=== PATIENT | male | born 1995 | race African-American/Black ===

== ENCOUNTER 2016-07-06 23:25 | Emergency (ER) | payer SELFPAY ==
[~2016-07-06] VITALS: Ht 190.5 cm; Wt 76.0 kg
[2016-07-06 23:27] VITALS: BP 153/68; PULSE 67; RESP 18; TEMP 98.5; O2SAT 100
--- NOTE | 2016-07-07 00:57 | PD ---
HPI Chief Complaint: Injury Time Seen by Provider: 00:54 Travel History International Travel<30 days: No Contact w/Intl Traveler<30days: No Traveled to known affect area: No History of Present Illness HPI Patient has a complaining of right ankle pain ongoing for approximately one week ago while playing basketball.He states someone stepped on the medial aspect of his right ankle causing it to invert. Patient had a throbbing pain since without radiation. Patient has been doing Rice therapy for symptomatic relief. Pain is worse with walking. Patient also has concerns over penile discharge ongoing for 4 days. Patient denies any dysuria, testicular pain, abdominal pain, fevers, or knowing if his last partner was symptomatic. [facility] Past Medical History Medical History: Denies Significant Hx Diminished Hearing: No Immunizations Current: Yes Tetanus Vaccination: < 5 Years Influenza Vaccination: No Past Surgical History Surgical History: No Previous Surgery Social History Alcohol Use: No Tobacco Use: No Substance Use: Yes (occ) Allergies-Medications (Allergen,Severity, Reaction): Coded Allergies: No Known Allergies (Unverified , 07/07/16) Reported Meds & Prescriptions Reported Meds & Active Scripts Active No Active Prescriptions or Reported Medications Review of Systems Except as stated in HPI: all other systems reviewed are Neg Physical Exam Narrative GENERAL: Well-developed, well nourished, in no acute distress, and non-ill appearing. SKIN: Warm and dry. HEAD: Atraumatic. Normocephalic. EYES: Pupils equal and round. EOMI. No scleral icterus. No injection or drainage. ENT: No nasal bleeding or discharge. Mucous membranes pink and moist. NECK: Trachea midline. Supple. No nuclear rigidity. CARDIOVASCULAR: Dorsal pulses 2+ intact bilaterally. Capillary refill less than 2 seconds. RESPIRATORY: No accessory muscle use. No respiratory distress. GASTROINTESTINAL: Abdomen soft, non-tender, nondistended. Hepatic and splenic margins not palpable. No pulsatile mass. MUSCULOSKELETAL: No obvious deformities. No clubbing. No cyanosis. No edema. Full range of motion.Ankle: Neagative anterior draw and Ward test. Negative Shweta's sign. No laxity noted with passive inversion and eversion of BL ankles. Negative squeeze test. Pulses equal BL distal to injury. Capillary refill less than 2 seconds distal to injury and equal BL. Sensation equal BL 1st web space. FROM of toes distal to injury and equal BL. NV intact distal to injury and equal BL. Dorsal pulses equal BL. Patient reports tenderness to palpation medial aspect of right ankle there is minimal soft tissue swelling noted. NEUROLOGICAL: Awake and alert. No obvious cranial nerve deficits. Motor grossly within normal limits. Normal speech. PSYCHIATRIC: Appropriate mood and affect; insight and judgment normal. Data Data Last Documented VS Vital Signs Date Time Temp Pulse Resp B/P Pulse Ox O2 Delivery O2 Flow Rate FiO2 07/07/16 00:50 14 07/06/16 23:27 98.5 67 153/68 100 Orders Ankle, Complete ([id number]) (07/07/16 ) Gc And Chlamydia Pcr (07/07/16 00:53) Azithromycin Powd Pack (Zithromax Powd P (07/07/16 01:00) Metronidazole (Flagyl) (07/07/16 01:00) Sodium Chloride 0.9% Flush (Ns Flush) (07/07/16 01:00) Ceftriaxone Inj (Rocephin Inj) (07/07/16 01:00) Lidocaine Pf 1% Inj (Xylocaine-Mpf 1% In (07/07/16 01:00) Splint Or Brace Apply/Monitor (07/07/16 01:27) MDM Medical Decision Making Medical Screen Exam Complete: Yes Emergency Medical Condition: Yes Differential Diagnosis Fracture, sprain, contusion, gonorrhea, chlamydia, other Narrative Course There is no clinical evidence for fracture. There is no clinical evidence to suspect bony injury by exam. Radiographic examination revealed no fracture seen at this time. No obvious ligamental injury or internal derangement is noted at this time. The distal extremity appears neurovascularly intact, without evidence of neurovascular injury nor compartment syndrome. Tendon exam also was intact. The effected limb was splinted. The patient was discharged on pain medication along with sprain and splint care instructions and given warnings for vascular compromise. The patient is to follow up with Orthopedics. The patient agrees with plan. Patient in no obvious distress upon re-evaluation. All pertinent Radiology result(s) discussed with patient. Patient was asked if they wanted to speak to my attending, which the patient did not wish to do at this time. Any questions/ concerns in reference to patient diagnosis/condition discussed and clarified prior to patient's discharge. Reinforced sheer importance of close follow up with patient's primary physician or primary care clinic. Instructed patient to return to ED immediately, if symptoms return/worsen. Pt showed understanding of above instructions. Further instructions and recommendations were detailed in discharge paperwork. Pt ambulated without difficulty out of ED at discharge. Diagnosis Primary Impression: Right ankle sprain Qualified Code: S93.401A - Sprain of right ankle, unspecified ligament, initial encounter Additional Impression: Possible exposure to STD Referrals: [facility] Dept. Patient Instructions: Ankle Sprain (ED), Ankle Sprain Exercises (GEN), General Instructions, Sexually Transmitted Diseases (ED), Splint Care (ED) Additional Instructions: Follow-up with primary care doctor and/or orthopedics in 2-3 days for evaluation of your ankle. Use [id number] Tylenol and/or ibuprofen as needed for pain. Follow instructions on the packaging. Apply ice to affected area 20 minutes per hour as needed for pain. Use Imer wrap as needed for comfort. Follow-up with your primary care physician and/or health Department for additional STD testing. Notify all sexual partners have them tested and treated. Do not have intercourse until all sexual partners tested and treated. Practice safe sex to prevent further STDs and/or unwanted pregnancies. If you would like a copy of your gonorrhea and chlamydia results bring a photo ID to medical records in 24-48 hours to get a copy. Return to the emergency department if symptoms get worse. Scripts No Active Prescriptions or Reported Meds Disposition: 01 DISCHARGE HOME Condition: Stable Jose Israel Jul 07, 2016 00:57
[2016-07-07] MEDS ORDERED: LIDOCAINE HCL 1% PF 30 ML VIAL XX ONE (01:00)
[2016-07-07] MEDS ORDERED: SODIUM CHLORIDE 0.9% FLUSH 5 ML FLUSH IVF PRN (01:00)
[2016-07-07] MEDS ORDERED: AZITHROMYCIN PWD FOR SUSP 1 GM PACKET PO ONE (01:00)
[2016-07-07] MEDS ORDERED: metroNIDAZOLE 500 MG TAB PO ONE (01:00)
--- NOTE | 2016-07-07 01:04 | RADRPT ---
EXAM DATE/TIME: 07/07/2016 00:43 [place] COMPARISON: No previous studies available for comparison. INDICATIONS : Right ankle pain and swelling post twisting action playing basketball. MEDICAL HISTORY : None. SURGICAL HISTORY : None. ENCOUNTER: Initial ACUITY: 1 day PAIN SCORE: 6/10 LOCATION: Right ankle FINDINGS: Three view exam was performed of the right ankle. The bony structures are in normal alignment. No e vidence of fracture or dislocation. There is soft tissue swelling seen laterally. The ankle mortise is intact. No radiopaque foreign bodies are seen. Bony mineralization is normal. CONCLUSION: Lateral soft tissue swelling. Bandar Mejia MD on July 07, 2016 at 1:02 Board Certified Radiologist. This report was verified electronically.
[2016-07-07 03:01] LABS: CHLAMYDIA PCR DETECTED (NOT DETECT); NEISSERIA PCR NOT DETECTED (NOT DETECT)
== END 2016-07-07 01:53 | disposition home or self-care (01) ==
LOC: NEPB 23:25
DX: S93.401A Sprain of unspecified ligament of right ankle, initial encounter (principal); Y93.67 Activity, basketball
CPT/HCPCS: 73610; 87491; 87591; 96372; 99283; J0696

== ENCOUNTER 2016-11-11 11:55 | Emergency (ER) | payer MEDICAID, OTHER ==
[~2016-11-11] VITALS: Ht 190.5 cm; Wt 80.0 kg
[2016-11-11 11:56] VITALS: BP 140/81; PULSE 67; RESP 15; TEMP 98.5; O2SAT 99
--- NOTE | 2016-11-11 12:01 | PD ---
Physical Exam Date Seen by Provider: Nov 11, 2016 Time Seen by Provider: 11:57 Data Data Last Documented VS Vital Signs Date Time Temp Pulse Resp B/P Pulse Ox O2 Delivery O2 Flow Rate FiO2 11/11/16 11:56 98.5 67 15 140/81 99 MDM Supervised Visit with BOAZ: No Narrative Course 21 YO M with complaint of sharp suprapubic abdominal pain. ++ dysuria and penile discharge. ++unprotected sex with female partner --N/V, F/C. Vitals reviewed. Patient seen in triage, awaiting bed placement. Scripts No Active Prescriptions or Reported Meds Rekha Mejía Nov 11, 2016 12:01
--- NOTE | 2016-11-11 12:25 | PD ---
HPI Chief Complaint: Complaint Time Seen by Provider: 12:20 Travel History International Travel<30 days: No Contact w/Intl Traveler<30days: No Traveled to known affect area: No History of Present Illness HPI 21-year-old Afro-[place] male presents to emergency Department with dysuria and penile discharge and lower abdominal cramping over the past 2 days. Patient denies fever, chills, flank pain, or testicular pain. He denies any lesions on the penis. Patient had uptake consistent with an unknown partner approximately one week ago. He has no nausea, vomiting, or other significant symptoms. Pain is 2/10 with urination. He has no known drug allergies. [facility] Past Medical History Diminished Hearing: No Immunizations Current: Yes ?: Not Social History Alcohol Use: Yes Tobacco Use: Yes Substance Use: No Allergies-Medications (Allergen,Severity, Reaction): Coded Allergies: No Known Allergies (Unverified , 11/11/16) Reported Meds & Prescriptions Reported Meds & Active Scripts Active No Active Prescriptions or Reported Medications Review of Systems Except as stated in HPI: all other systems reviewed are Neg General / Constitutional: No: Fever Eyes: No: Visual changes HENT: No: Headaches Cardiovascular: No: Chest Pain or Discomfort Respiratory: No: Shortness of Breath Gastrointestinal: No: Abdominal Pain Genitourinary: Positive: Dysuria, Pelvic Pain, Discharge Musculoskeletal: No: Pain Skin: No Rash Neurologic: No: Weakness Psychiatric: No: Depression Endocrine: No: Polydipsia Hematologic/Lymphatic: No: Easy Bruising Physical Exam Narrative GENERAL: Patient appears in no acute distress. SKIN: Warm and dry. Normal color. Normal turgor. No rash. HEAD: Atraumatic. Normocephalic. EYES: Pupils equal and round. No scleral icterus. No injection or drainage. ENT: No nasal bleeding or discharge. Mucous membranes pink and moist. Pharynx is clear. Airway is patent. NECK: Trachea midline. Supple nontender. CARDIOVASCULAR: Regular rate and rhythm. RESPIRATORY: No accessory muscle use. Clear to auscultation. Breath sounds equal bilaterally. GASTROINTESTINAL: Abdomen soft, mild suprapubic tenderness with palpation, nondistended. Hepatic and splenic margins not palpable. No CVA tenderness. NEUROLOGICAL: Awake and alert. No obvious cranial nerve deficits. Motor grossly within normal limits. Five out of 5 muscle strength in the arms and legs. Normal speech. PSYCHIATRIC: Appropriate mood and affect; insight and judgment normal. Data Data Last Documented VS Vital Signs Date Time Temp Pulse Resp B/P Pulse Ox O2 Delivery O2 Flow Rate FiO2 11/11/16 11:56 98.5 67 15 140/81 99 Orders Urinalysis - C+S If Indicated (11/11/16 12:19) Gc And Chlamydia Pcr (11/11/16 12:19) Azithromycin (Zithromax) (11/11/16 12:30) Ceftriaxone Inj (Rocephin Inj) (11/11/16 12:30) Lidocaine 1% Inj (50 Ml) (Xylocaine 1% I (11/11/16 12:30) Urine Culture (11/11/16 12:22) Labs Laboratory Tests Test 11/11/16 12:22 Urine Color LIGHT-YELLOW Urine Turbidity CLEAR Urine pH 6.0 Urine Specific [place] 1.014 Urine Protein NEG mg/dL Urine Glucose (UA) NEG mg/dL Urine Ketones NEG mg/dL Urine Occult Blood NEG Urine Nitrite NEG Urine Bilirubin NEG Urine Urobilinogen LESS THAN 2.0 MG/DL Urine Leukocyte Esterase MOD Urine RBC LESS THAN 1 /hpf Urine WBC 13 /hpf Urine Bacteria RARE /hpf Urine Mucus FEW /lpf Microscopic Urinalysis Comment CULTURE INDICATED MDM Medical Decision Making Medical Screen Exam Complete: Yes Emergency Medical Condition: Yes Differential Diagnosis Dysuria. UTI. Prostatitis. STD. Narrative Course Urinalysis is sent to the lab for UA as well as GC chlamydia testing. Patient is given thousand milligrams Rocephin IM as well as 1000 mg of azithromycin by mouth. Urine culture is pending. Patient should follow-up with the Public health service or primary care physician as discussed. Patient should refrain from intercourse for the next 2 weeks. Diagnosis Primary Impression: Possible exposure to STD Additional Impression: Dysuria Referrals: [facility] Dept. Patient Instructions: General Instructions Additional Instructions: Patient is given thousand milligrams Rocephin IM as well as 1000 mg of azithromycin by mouth. Patient will be covered with Cipro 500 mg twice a day 10 days. Urine culture is pending. Patient should follow-up with the [facility] health service or primary care physician as discussed. Patient should refrain from intercourse for the next 2 weeks. Med/Other Pt SpecificInfo: Prescription(s) given Scripts Cephalexin (Keflex)500 Mg Ibh512 Mg PO Q8H #21 CAP Prov:Jayesh Lane MD 11/11/16 Disposition: 01 DISCHARGE HOME Condition: Stable Kenneth De Santiago Nov 11, 2016 12:25
[2016-11-11] MEDS ORDERED: AZITHROMYCIN 250 MG TAB PO ONE (12:30)
[2016-11-11] MEDS ORDERED: LIDOCAINE HCL 1% 50 ML VIAL XX ONE (12:30)
[2016-11-11 12:56] LABS: BACTERIA, URINE RARE /hpf; BLOOD, URINE NEG (NEG); COMMENT (UR) CULTURE INDICATED; CULTURE IF INDICATED CULTURE INDICATED; GLUCOSE,URINE NEG (NEG); KETONE, URINE NEG (NEG); MUCUS URINE FEW /lpf (OCC); NITRITE,URINE NEG (NEG); URINE COLOR LIGHT-YELLOW (YELLW/STRAW)
[2016-11-11] MEDS ORDERED: CEPH-460 PO (13:04)
[2016-11-11] MEDS ORDERED: CIPR-9 PO (13:06)
[2016-11-11 16:29] LABS: CHLAMYDIA PCR DETECTED (NOT DETECT); NEISSERIA PCR NOT DETECTED (NOT DETECT)
== END 2016-11-11 13:21 | disposition home or self-care (01) ==
LOC: NEPK 11:55
DX: R30.0 Dysuria (principal); R36.9 Urethral discharge, unspecified
CPT/HCPCS: 81001; 87086; 87491; 87591; 96372; 99284; J0696